=== PATIENT | male | born 1980 | race Hispanic/Latino ===

== ENCOUNTER 2018-06-13 15:49 | Emergency (ER) | payer SELFPAY ==
[2018-06-13] MEDS ORDERED: Acetaminophen 325 MG TAB ONE (17:18)
[2018-06-13] MEDS ORDERED: Ketorolac Tromethamine 30 MG/ML VIAL ONE (17:18)
== END 2018-06-13 17:36 | disposition home or self-care (01) ==
LOC: ERS 15:49
DX: M54.5 Low back pain (principal)
CPT/HCPCS: 96372; J1885